=== PATIENT | male | born 1980 | race Caucasian/White ===

== ENCOUNTER 2017-06-24 15:05 | Emergency (ER) | payer MEDICAID, OTHER ==
[2017-06-24 15:05] VITALS: BMI 30.7
[2017-06-24 15:15] VITALS: RESP 18; TEMP 98
[2017-06-24 16:27] VITALS: BP 142/74; PULSE 81; O2SAT 97
--- NOTE | 2017-06-24 16:34 | ED PDOC ---
Arrival/HPI - General Chief Complaint: Eye Problem Time Seen by Provider: 06/24/17 16:20 Historian: Patient - History of Present Illness Narrative History of Present Illness (Text): 06/24/17 17:44 36-year-old male presents today with concerns for left eye redness. Patient states he woke up this morning and he noticed the medial aspect of his left eye was red. Patient states while at work the eye became itchy. Patient states at times he feels as if there is blurred vision. Patient states last night he felt a little nauseous and gagged and vomited and today he's denies nausea vomiting or abdominal pain. He denies fevers or chills. Patient states that he noticed a rash around the left eye. He denies any pain to the eye. Time/Duration: Other (this am) Symptom Onset: Sudden Past Medical History - Provider Review Nursing Documentation Reviewed: Yes - Travel History Have you recently traveled outside [place] w/in the past 3 mons?: No - Infectious Disease Hx of Infectious Diseases: None - Tetanus Immunization Tetanus Immunization: Unknown - Past Medical History Past Medical History: No Previous - Psychiatric Hx Depression: No Hx Emotional Abuse: No Hx Physical Abuse: No Hx Substance Use: No - Past Surgical History Past Surgical History: No Previous - Anesthesia Hx Anesthesia: No - Suicidal Assessment Feels Threatened In Home Enviroment: No Family/Social History - Physician Review Nursing Documentation Reviewed: Yes Family/Social History: Unknown Family HX Smoking Status: Current Some Days Smoker Hx Alcohol Use: Yes Frequency of alcohol use: Socially Hx Substance Use: No Hx Substance Use Treatment: No Allergies/Home Meds Allergies/Adverse Reactions: Allergies No Known Allergies Allergy (Verified 03/16/14 15:01) Home Medications: Home Meds Medication Instructions Recorded Confirmed No Known Home Med 06/24/17 06/24/17 Review of Systems - Review of Systems Constitutional: absent: Fatigue, Fevers Eyes: Other (red left eye). absent: Photophobia, Eye Pain ENT: absent: Sore Throat, Sinus Congestion Respiratory: absent: SOB, Cough Cardiovascular: absent: Chest Pain, Palpitations Gastrointestinal: absent: Abdominal Pain, Nausea, Vomiting Genitourinary Male: absent: Dysuria Musculoskeletal: absent: Arthralgias, Back Pain, Neck Pain Skin: absent: Rash, Pruritis Psychiatric: absent: Anxiety, Depression, Suicidal Ideation Physical Exam Vital Signs Reviewed: Yes Vital Signs Temp Pulse Resp BP Pulse Ox 06/24/17 15:12 98.0 F 84 18 149/89 95 Temperature: Afebrile Blood Pressure: Normal Pulse: Regular Respiratory Rate: Normal Appearance: Positive for: Well-Appearing, Non-Toxic, Comfortable Pain Distress: None Mental Status: Positive for: Alert and Oriented X 3 - Systems Exam Head: Present: Other (+ few petechia noted around the left cheek. non tender. no swelling.) Pupils: Present: PERRL Extroacular Muscles: Present: EOMI Conjunctiva: Present: Other (left eye; there is a subconjunctival hemorrhage noted along the medial aspect of the sclera. Pupils are equal and reactive. Extraocular muscles are intact. No purulent discharge.) Ears: Present: Normal Mouth: Present: Moist Mucous Membranes Pharnyx: Present: Normal Nose (Internal): Present: Normal Inspection Neck: Present: Normal Range of Motion, Trachea Midline. No: Meningeal Signs Respiratory/Chest: Present: Clear to Auscultation, Good Air Exchange. No: Respiratory Distress, Accessory Muscle Use Cardiovascular: Present: Regular Rate and Rhythm, Normal S1, S2. No: Murmurs Medical Decision Making ED Course and Treatment: 06/24/17 17:47 Patient is nontoxic well appearing in no distress Visual acuity within normal limits left eye; + subconjunctival hemorrhage noted to medial aspect. PERRLA, extraocular muscles intact I have had a long in-depth conversation with the patient regarding subconjunctival hemorrhage. I advised the patient is most likely due to the episode of vomiting he had last night. I advised follow-up with the eye doctor. Advised immediate return is symptoms worsen persist or if new concerning symptoms develop Patient verbalizes understanding of discharge instructions and need for immediate followup. all aspects of this case were discussed the attending of record. Impression: Subconjunctival hemorrhage Followup with the eye doctor within the next 2 days Return immediately if symptoms worsen persist or if new symptoms develop; blurry vision, worsening eye pain, worsening redness or any other concerning symptoms develop. Follow up with her primary care physician within the next 2 days Disposition/Present on Arrival - Present on Arrival Any Indicators Present on Arrival: No History of DVT/PE: No History of Uncontrolled Diabetes: No Urinary Catheter: No History of Decub. Ulcer: No History Surgical Site Infection Following: None - Disposition Have Diagnosis and Disposition been Completed?: Yes Diagnosis: Subconjunctival hemorrhage Disposition: HOME/ ROUTINE Disposition Time: 16:20 Patient Plan: Discharge Condition: GOOD Discharge Instructions (ExitCare): Subconjunctival Hemorrhage Additional Instructions: Followup with the eye doctor within the next 2 days Return immediately if symptoms worsen persist or if new symptoms develop; blurry vision, worsening eye pain, worsening redness or any other concerning symptoms develop. Follow up with her primary care physician within the next 2 days Referrals: Wayne Bliss MD [Staff Provider] - Follow up with primary [facility] [place] - Follow up with primary Lena Dodson MD [Staff Provider] - Follow up with primary Forms: [employer] [employer] (Mongolian), WORK NOTE
== END 2017-06-24 16:39 | disposition home or self-care (01) ==
LOC: ED 15:05
DX: H11.32 Conjunctival hemorrhage, left eye (principal)

== ENCOUNTER 2018-04-03 19:15 | Emergency (ER) | payer MEDICAID, OTHER ==
[2018-04-03 19:16] VITALS: BMI 30.7
[2018-04-03 20:37] VITALS: RESP 18
[2018-04-03 21:31] LABS: PH,URINE 6.5 (4.7-8.0); URINE APPEARANCE CLEAR (CLEAR); URINE BILIRUBIN NEGATIVE (NEGATIVE); URINE BLOOD NEGATIVE (NEGATIVE); URINE COLOR LIGHT YELLOW (YELLOW); URINE GLUCOSE (UA) NEGATIVE (NEGATIVE); URINE LEUKOCYTE ESTERASE NEGATIVE Leu/uL (NEGATIVE); URINE PROTEIN NEGATIVE mg/dL (<30 mg/dL); URINE UROBILINOGEN 0.2 E.U./dL (<1 E.U./dL)
--- NOTE | 2018-04-03 22:35 | ED PDOC ---
Arrival/HPI - General Chief Complaint: Male Genitourinary Historian: Patient - History of Present Illness Narrative History of Present Illness (Text): 04/03/18 22:30 37yo male with no pmhx history who present with complaint of left testicular pain and swelling. States he noticed the swelling earlier this week, usually whenever he lifts a heavy object with pain. States pain is currently mild, but gets worse whenever he lifts a heavy object and gets the bulging/swelling. Notes that he is sexually active. Denies urinary symptoms, hematuria, abdominal pain, back pain, fever, chills, nausea, vomiting, any other complaint. Past Medical History - Provider Review Nursing Documentation Reviewed: Yes - Infectious Disease Hx of Infectious Diseases: None - Tetanus Immunization Tetanus Immunization: Unknown - Past Medical History Past Medical History: No Previous - Psychiatric Hx Depression: No Hx Emotional Abuse: No Hx Physical Abuse: No Hx Substance Use: No - Past Surgical History Past Surgical History: No Previous - Anesthesia Hx Anesthesia: No - Suicidal Assessment Feels Threatened In Home Enviroment: No Family/Social History - Physician Review Nursing Documentation Reviewed: Yes Family/Social History: Unknown Family HX Smoking Status: Current Some Days Smoker Hx Alcohol Use: Yes Hx Substance Use: No Hx Substance Use Treatment: No Allergies/Home Meds Allergies/Adverse Reactions: Allergies No Known Allergies Allergy (Verified 04/03/18 20:05) Home Medications: Home Meds Medication Instructions Recorded Confirmed No Known Home Med 06/24/17 04/03/18 Review of Systems - Physician Review All systems were reviewed & negative as marked: Yes - Review of Systems Constitutional: Normal Eyes: Normal ENT: Normal Respiratory: Normal Cardiovascular: Normal Gastrointestinal: Normal Genitourinary Male: Other (Testicular pain/swelling) Musculoskeletal: Normal Skin: Normal Neurological: Normal Endocrine: Normal Hemo/Lymphatic: Normal Psychiatric: Normal Physical Exam Vital Signs Reviewed: Yes Vital Signs Temp Pulse Resp BP Pulse Ox 04/03/18 21:37 74 18 135/78 100 04/03/18 20:30 98.2 F 84 18 125/81 99 Temperature: Afebrile Blood Pressure: Normal Pulse: Regular Respiratory Rate: Normal Appearance: Positive for: Well-Appearing, Non-Toxic, Comfortable Pain Distress: None Mental Status: Positive for: Alert and Oriented X 3 - Systems Exam Head: Present: Atraumatic, Normocephalic Pupils: Present: PERRL Extroacular Muscles: Present: EOMI Conjunctiva: Present: Normal Mouth: Present: Moist Mucous Membranes Neck: Present: Normal Range of Motion Respiratory/Chest: Present: Clear to Auscultation, Good Air Exchange. No: Respiratory Distress, Accessory Muscle Use Cardiovascular: Present: Regular Rate and Rhythm, Normal S1, S2. No: Murmurs Abdomen: No: Tenderness, Distention, Peritoneal Signs Genitourinary Male: Present: Testicle Tenderness (Mild left tesicular tenderness), Testicle Swelling (Very mild left testicle swelling noted), Other (RN, Chong power) Back: Present: Normal Inspection Upper Extremity: Present: Normal Inspection. No: Cyanosis, Edema Lower Extremity: Present: Normal Inspection. No: Edema Neurological: Present: GCS=15, CN II-XII Intact, Speech Normal Skin: Present: Warm, Dry, Normal Color. No: Rashes Psychiatric: Present: Alert, Oriented x 3, Normal Insight, Normal Concentration Medical Decision Making ED Course and Treatment: 04/04/18 00:05 37yo male in ED for left testicle pain/swelling x days. UA Chlamydia/gono Testicle US Testicular US Findings: Real-time ultrasound imaging of the testicles and scrotum was performed. The right testicle measures 4.5 x 2.7 x 3.1 cm. The left testicle measures 5.0 x 2.3 x 3.0 cm. There is a large complex cyst in the left epididymis measuring 3.8 x 3.3 x 5.0 cm. The testicles demonstrate normal echo texture and echogenicity. Normal color Doppler flow and arterial waveforms are seen bilaterally. No fluid collections are seen. Impression: Unremarkable ultrasound examination of the testicles. Large complex left epididymal cyst. UA negative chlamydia/gono pending. Pt reported that he is and not worried about STD. He declined treatment at this time. he also denied penile discharge in ED. Result was DW the pt and he was referred to a Urologist for further evaluation. - Lab Interpretations Lab Results: Lab Results 04/03/18 21:20: Urine Color Light yellow, Urine Appearance Clear, Urine pH 6.5, Ur Specific Jackson 1.025, Urine Protein Negative, Urine Glucose (UA) Negative, Urine Ketones Negative, Urine Blood Negative, Urine Nitrate Negative, Urine Bi lirubin Negative, Urine Urobilinogen 0.2, Ur Leukocyte Esterase Negative - RAD Interpretation Radiology Orders: 04/03/18 20:38 TESTES DUPLEX COMPLETE [US] Stat - Medication Orders Current Medication Orders: Discontinued Medications Ibuprofen (Motrin Tab) 600 mg PO STAT STA Stop: 04/03/18 20:53 Last Admin: 04/03/18 21:36 Dose: 600 mg MAR Pain/Vitals Document 04/03/18 21:36 RG (Rec: 04/03/18 21:38 RG [facility] [id number]) Pain Reassessment Is This A Pain ReAssessment? Yes Disposition/Present on Arrival - Present on Arrival Any Indicators Present on Arrival: No History of DVT/PE: No History of Uncontrolled Diabetes: No Urinary Catheter: No History of Decub. Ulcer: No History Surgical Site Infection Following: None - Disposition Have Diagnosis and Disposition been Completed?: Yes Diagnosis: Epididymal cyst Disposition: HOME/ ROUTINE Disposition Time: 23:45 Patient Plan: Discharge Condition: STABLE Additional Instructions: Follow up with a urologist Return to ED for any new or worsening symptoms Referrals: Devon Velasco MD [Staff Provider] - Follow up with primary Forms: [employer] (Frisian)
[2018-04-04 00:03] VITALS: BP 123/80; PULSE 72; TEMP 98.1; O2SAT 98
--- NOTE | 2018-04-04 12:25 | US ---
Date of service: 04/03/2018 HISTORY: left testicle pain TECHNIQUE: Realtime sonography through the scrotum with color and doppler flow. COMPARISON: None Available. FINDINGS: RIGHT TESTICLE: Measures 4.5 x 2.7 x 3.1 cm. Normal echotexture and flow. RIGHT EPIDIDYMIS: Epididymal head measures 1.1 cm. Grossly unremarkable appearance with normal flow. LEFT TESTICLE: Measures 5.0 x 2.3 x 3.0 cm. Normal echotexture and flow. LEFT EPIDIDYMIS: Epididymal head measures 3.8 x 3.3 x 5.0 cm. Grossly unremarkable appearance with normal flow. HYDROCELE: None. VARICOCELE: None. OTHER FINDINGS: The report concurs with the preliminary [facility] report IMPRESSION: No evidence of torsion. Large cyst in the left epididymis
== END 2018-04-04 00:03 | disposition home or self-care (01) ==
LOC: ED 19:15
DX: N50.3 Cyst of epididymis (principal)